=== PATIENT | female | born 1975 | race Caucasian/White ===

== ENCOUNTER 2017-07-20 06:35 | Day surgery (SDC) | payer BC ==
[~2017-07-20 06:35] MED LIST: Lactated Ringers 1,000 ML IV SCH; Lidocaine 1%/Sod Bicarbonate in NS 8.4% 1 ML Syringe IDERM PRN; Sodium Chloride 0.9% 10 ML Syringe FLUSH PRN
[2017-07-20] MEDS ORDERED: Ondansetron 4 MG/2 ML SDV ONE (07:08)
[2017-07-20] MEDS ORDERED: Rocuronium 50 MG/5 ML Vial ONE (07:08)
[2017-07-20] MEDS ORDERED: fentaNYL 250 MCG/5 ML SDV ONE ×2 (07:09→08:25)
[2017-07-20] MEDS ORDERED: Propofol 200 MG/20 ML SDV ONE (07:09)
[2017-07-20] MEDS ORDERED: Midazolam 1 MG/ML 2 ML SDV ONE (07:09)
[2017-07-20] MEDS ORDERED: Lidocaine 1% 4 ML ONE (07:09)
[2017-07-20] MEDS ORDERED: Sodium Chloride 0.9% 50 ML SDV ONE (07:11)
[2017-07-20] MEDS ORDERED: Bupivacaine 0.5% 30 ML SDV ONE (07:11)
[2017-07-20] MEDS ORDERED: Lidocaine 1% with EPINEPHrine 1:100,000 20 ML MDV ONE (07:11)
--- NOTE | 2017-07-20 07:28 | PCM.PREANE ---
Preanesthetic Assessment - Anesthesia/Transfusion/Family Hx Anesthesia History: Prior Anesthesia Without Reaction Family History of Anesthesia Reaction: No Transfusion History: No Prior Transfusion(s) - Review of Systems General: No Symptoms Pulmonary: No Symptoms Cardiovascular: No Symptoms Gastrointestinal: No Symptoms Neurological: No Symptoms Other: Reports: None - Physical Assessment NPO Status Date: 07/19/17 NPO Status Time: 00:00 Pulse: 81 O2 Sat by Pulse Oximetry: 97 Respiratory Rate: 20 Blood Pressure: 122/67 Temperature: 37.2 C Height: 1.7 m Weight: 74.389 kg ASA Class: 2 Mental Status: Alert & Oriented x3 Airway Class: Mallampati = 1 Dentition: Reports: Normal Dentition Thyro-Mental Finger Breadths: 3 Mouth Opening Finger Breadths: 3 ROM/Head Extension: Full Lungs: Clear to Auscultation, Normal Respiratory Effort Cardiovascular: Regular Rate, Regular Rhythm, No Murmurs - Lab Values: Laboratory Last Values Urine Color Yellow (Yellow) 07/20/17 06:50 Urine Appearance Clear (Clear) 07/20/17 06:50 Urine pH 6.0 (5.0-8.0) 07/20/17 06:50 Ur Specific [place] 1.020 (1.005-1.030) 07/20/17 06:50 Urine Protein Negative (Negative) 07/20/17 06:50 Urine Glucose (UA) Negative (Negative) 07/20/17 06:50 Urine Ketones Negative (Negative) 07/20/17 06:50 Urine Occult Blood Trace-lysed (Negative) H 07/20/17 06:50 Urine Nitrite Negative (Negative) 07/20/17 06:50 Urine Bilirubin Negative (Negative) 07/20/17 06:50 Urine Urobilinogen 0.2 (0.2-1.0) 07/20/17 06:50 Ur Leukocyte Esterase 2+ (Negative) H 07/20/17 06:50 - Allergies Allergies/Adverse Reactions: Allergies Allergy/AdvReac Type Severity Reaction Status Date / Time latex Allergy Mouth Sores Verified 08/30/13 15:33 CDT Penicillins Allergy Hives Verified 08/30/13 15:33 CDT - Blood Blood Available: Yes Product(s) Available: PRBC - Anesthesia Plan Pre-Op Medication Ordered: None - Acknowledgements Anesthesia Type Planned: General Anesthesia Pt an Appropriate Candidate for the Planned Anesthesia: Yes Alternatives and Risks of Anesthesia Discussed w Pt/Guardian: Yes Pt/Guardian Understands and Agrees with Anesthesia Plan: Yes PreAnesthesia Questionnaire HEENT History: Reports: None Cardiovascular History: Reports: None Respiratory History: Reports: None Gastrointestinal History: Reports: GERD, Other (See Below) Other Gastrointestinal History: HERNIA REPAIR Genitourinary History: Reports: None LEAD MINER BLASTING History: Reports: Endometrial Ablation, Other (See Below) Other OB/BYN History: LAPAROSCOPY WITH LYSIS OF ADHESIONS, MENORRHAGIA, PELVIC PAIN Neurological History: Reports: None Psychiatric History: Reports: None Endocrine/Metabolic History: Reports: None Hematologic History: Reports: None Immunologic History: Reports: None Oncologic (Cancer) History: Reports: None Dermatologic History: Reports: None - Past Surgical History Head Surgeries/Procedures: Reports: None HEENT Surgical History: Reports: None Cardiovascular Surgical History: Reports: None Respiratory Surgical History: Reports: None GI Surgical History: Reports: Hernia Repair/Other Female Surgical History: Reports: Breast Biopsy Endocrine Surgical History: Reports: None Neurological Surgical History: Reports: None Musculoskeletal Surgical History: Reports: Arthroscopic Knee, Other (See Below) Other Musculoskeletal Surgeries/Procedures:: FOOT SURGERY, KNEE SURGERY X2 Oncologic Surgical History: Reports: None Dermatological Surgical History: Reports: None - SUBSTANCE USE Smoking Status *Q: Never Smoker Recreational Drug Use History: No - HOME MEDS Home Medications: Home Meds Calcium Carbonate [Calcium] 500 mg PO DAILY 07/19/17 [History] Cholecalciferol (Vitamin D3) [Vitamin D3] 1,000 unit PO DAILY 07/19/17 [History] Inulin [Fiber Gummies] 2 gm PO DAILY 07/19/17 [History] Lysine 500 mg PO DAILY 07/19/17 [History] Multivitamin with Minerals [Hair, Skin and Nails] 1 tab PO DAILY 07/19/17 [ History] Potassium Phosphate,Monobasic [K-Phos Original] 500 mg PO DAILY 07/19/17 [ History] - CURRENT (IN HOUSE) MEDS Current Meds: Current Medications Lactated Ringer's (Ringers, Lactated) 1,000 mls @ 125 mls/hr IV ASDIRECTED JIMMY Lidocaine/Sodium Bicarbonate (Buffered Lidocaine 1% In Ns 8.4%) 0.25 ml IDERM ONETIME PRN PRN Reason: Prior to IV Start Sodium Chloride (Saline Flush) 10 ml FLUSH ASDIRECTED PRN PRN Reason: Keep Vein Open Discontinued Medications Bupivacaine HCl (Marcaine 0.5%) Confirm Administered Dose 30 ml .ROUTE .STK-MED ONE Stop: 07/20/17 07:12 Fentanyl (Sublimaze) Confirm Administered Dose 250 mcg .ROUTE .STK-MED ONE Stop: 07/20/17 07:10 Lidocaine HCl (Xylocaine-Mpf 1%) Confirm Administered Dose 4 mls @ as directed .ROUTE .STK-MED ONE Stop: 07/20/17 07:10 Lidocaine/Epinephrine (Xylocaine 1% With Epinephrine 1:100,000) Confirm Administered Dose 20 ml .ROUTE .STK-MED ONE Stop: 07/20/17 07:12 Midazolam HCl (Versed 1 Mg/Ml) Confirm Administered Dose 2 mg .ROUTE .STK-MED ONE Stop: 07/20/17 07:10 Ondansetron HCl (Zofran) Confirm Administered Dose 4 mg .ROUTE .STK-MED ONE Stop: 07/20/17 07:09 Propofol (Diprivan 20 Ml) Confirm Administered Dose 200 mg .ROUTE .STK-MED ONE Stop: 07/20/17 07:10 Rocuronium [place] (Zemuron) Confirm Administered Dose 50 mg .ROUTE .STK-MED ONE Stop: 07/20/17 07:09 Sodium Chloride (Normal Saline) Confirm Administered Dose 50 ml .ROUTE .STK-MED ONE Stop: 07/20/17 07:12
[2017-07-20] MEDS ORDERED: HYDROmorphone 0.5 MG/0.5 ML Syringe ONE ×2 (08:04→08:05)
[2017-07-20] MEDS ORDERED: Dexamethasone 4 MG/ML 5 ML MDV ONE (08:10)
[2017-07-20] MEDS ORDERED: Ketorolac 30 MG/ML SDV ONE (08:10)
[2017-07-20] MEDS ORDERED: Lactated Ringers 1,000 ML ONE ×2 (08:13→10:04)
--- NOTE | 2017-07-20 09:04 | PCM.SN ---
- Free Text/Narrative Note: General Surgery Intra-operative Consult I was asked by Dr. Zara Miranda, OBGYN, to provide assistance in the OR during their laparoscopic hysterectomy procedure. During mobilization of the sigmoid colon by the primary team, there was a small serosal tear made along the anterior aspect. I scrubbed in to assist. I inspected the serosal tear, and it was very small <1 cm, and was superficial. No need for surgical repair. I provided assistance with medialization of the sigmoid colon and mobilizing it away from the round ligament. This was performed bluntly, with monopolar cautery , and Ligasure. For details of the rest of the procedure, please see OBGYN (primary team) note. Nathan Nunes M.D., F.A.C.S. General Surgery Pager: [phone]
[2017-07-20] MEDS ORDERED: HYDROmorphone 0.5 MG/0.5 ML Syringe IVPUSH PRN (11:15)
[2017-07-20] MEDS ORDERED: fentaNYL 100 MCG/2 ML SDV IVPUSH PRN (11:15)
--- NOTE | 2017-07-20 11:17 | PCM.POSTAN ---
POST ANESTHESIA ASSESSMENT - MENTAL STATUS Mental Status: Alert, Oriented - VITAL SIGNS Pulse Rate: 79 SaO2: 97 Resp Rate: 8 Blood Pressure: 97/56 Temperature: 36.8 C - RESPIRATORY Respiratory Status: Respiratory Rate WNL, Airway Patent, O2 Saturation Stable, Supplemental Oxygen - CARDIOVASCULAR CV Status: Pulse Rate WNL, Blood Pressure Stable - GASTROINTESTINAL GI Status: No Symptoms - PAIN Pain Score: 0 - POST OP HYDRATION Hydration Status: Adequate & Stable - OBSERVATIONS Free Text/Narrative:: no anesthesia complications noted
--- NOTE | 2017-07-20 11:23 | PCM.OPNOTE ---
- General Post-Op/Procedure Note Date of Surgery/Procedure: 07/20/17 Operative Procedure(s): LAVH Findings: Bowel adhesions, enlarged uterus, normal ovaries Pre Op Diagnosis: menorrhagia, pelvic pain Post-Op Diagnosis: Same Anesthesia Technique: General ET Tube Primary Surgeon: Zara Miranda Secondary Surgeon: Nathan Nunes Office Communication Professor: Latoya Mobley Reason Office Communication Professor Was Necessary: retraction, anesthesia time Fluid Replacement, Intraop: 2,500 Output, Urine Amount: 250 EBL in mLs: 200 Complications: small bowel serosal injury, intraop consult Dr. Nunes Condition: Good Free Text/Narrative:: The risks, benefits, indications, potential complications, and alternatives were explained to the patient and informed consent obtained. The patient was taken to the Operating Room where general anesthesia was induced without complication. The patient was placed in dorsal lithotomy with Morro Stirrups and an exam under anesthesia revealed the findings detailed above. The patient was then prepped and draped in the usual sterile fashion. A sterile bivalve speculum was placed into the vagina and the anterior lip of the cervix was grasped with a single tooth tenaculum and a Digby uterine manipulator was placed to allow uterine manipulation throughout the procedure. The speculum and single tooth tenaculum were removed from the vagina. A Servin catheter was placed in sterile fashion. Attention was then turned to the patients abdomen where a Veress needle was carefully introduced into the peritoneal cavity while tenting the abdominal wall. Intraperitoneal placement was confirmed by free flow of saline into the abdomen from a syringe open to gravity and with a low intraabdominal pressure with insufflation of C02 gas on low flow. The gas was increased to high flow and a pneumoperitoneum was obtained with C02 gas to a pressure of 15 mm Hg. A 5 mm skin incision was made in a usual fashion in the umbilical fold and a 5 mm blunt trocar was inserted into the abdomen with direct visualization of the laparoscope through the clear view trocar lens. 5 mm skin incisions were made in both the left and right lower quadrants approximately 10 cm lateral and 3 cm inferior to the umbilicus. 5 mm blunt trocars were inserted into the abdomen under direct visualization with care to avoid the abdominal wall vasculature. A blunt probe and grasper were inserted through the accessory ports and a survey of the abdomen revealed the findings detailed above. The right fallopian tube was elevated with the blunt graspers at the fimbriated end. The right ureter was directly visualized and noted to be below the planned dissection area. The Ligasure was used to grasp, elevate, cauterize and transect the right adnexa from the fimbriated end toward the uterus to the level of the round ligament. The round ligament on the right was then elevated, cauterized, and transected with the Ligasure. Hemostasis was noted. Next, the vesicouterine peritoneum was elevated gently with a blunt grasper and the ligausre was used dissect the vesicouterine peritoneum to make a bladder flap. Two more small bites along the right side of the uterus were made with the Ligasure to skeletonize the uterine artery. Hemostasis was noted. The exact same procedure was carried out on the left adnexa starting with grasping the left fallopian tube by the fimbriated end and identifying the left ureter position. During this there were adhesions of the sigmoid making access to the tube and round ligament difficult. A small serosal tear was created in the bowel. General surgeon consulted intraoperatively and assisted in mobilizing the sigmoid colon. Next, the Ligasure was used to grasp, cauterize, and transect from the fimbriated end of the fallopian tube toward the uterus to the level of the round ligament. Next, the left round ligament was elevated, cauterized, and transected and a couple of additional small bites on the left side of the uterus were made to help skeletonize the left uterine artery. Hemostasis as noted. The CO2 gas was turned off and the laparoscope was removed. Attention was then turned to the vaginal portion of the procedure. A short weighted speculum was placed in the vagina, and the cervix was grasped with two double-toothed tenaculums. The cervix was injected circumferentially with 10 mL of dilute Pitressin (10 units in 30 mL of NS). The cervix was then circumferentially incised with a scalpel. A Raytec was used to bluntly dissect the cervix circumferentially until an avascular plane was obtained. The posterior cul-de-sac was entered sharply without difficulty. A 0-Vicryl pop-off suture was placed at six o'clock to include the posterior vaginal mucosa and posterior peritoneum. This stitch was tagged with a straight clamp to help with vaginal cuff closure at the end of the case. The short weighted speculum was replaced by the long weighted speculum. The uterosacral ligaments were grasped on either side, transected, suture ligated, and tagged with curved hemostats on each side. Hemostasis was assured. The bladder was dissected off the pubovesical cervical fascia anteriorly with a sponge and blunt dissection. The anteiror cul-de-sac was then entered sharply without difficulty. The cardinal ligaments were then serially clamped on both sides, transected, and suture ligated in similar fashion with 0-Vicryl sutures. The uterine arteries were then clamped, transected and suture ligated on both sides with 0-Vicryl sutures. Hemostasis was then noted. The fundus and adnexa were confirmed to be free of any further peritoneal attachments and then were pulled out through the vagina. The uterosacral ligaments were transfixed to the vaginal cuff at the apex on each side with 0-vicryl sutures in figure of eight fashion. The vaginal cuff was closed with a 0-Vicryl in a running locked fashion. Hemostasis was noted. Attention was then again turned to the abdomen. All members of the surgical team changed gloves. The laparoscope was again inserted and the abdomen was again insufflated with CO2. The pedicles were again visualized. Irrigation of the pedicles was performed. Neymar seal was placed along the vaginal cuff. Hemostasis was confirmed. The patient was taken out of Trendelenberg position. The accessory trocars were removed under direct visualization. The pneumoperitoneum was allowed to escape. The umbilical trocar was removed and lastly the camera was removed from the abdomen under direct visualization to confirm no herniation into the port site. All skin incisions were re- approximated with 4-0 Monocryl and sealed with Dermabond. Hemostasis was noted. A total of 10 cc of 0.25% Marcaine was injected into the subcutaneous tissues surrounding the skin incisions for local anesthesia. All sponge, lap, needle, and instrument counts were correct x 2. The patient tolerated the procedure well and there were no complications.
[2017-07-20] MEDS ORDERED: Ondansetron 4 MG/2 ML SDV IVPUSH PRN (15:14)
[2017-07-20] MEDS ORDERED: Acetaminophen/oxyCODONE 325-5 MG Tab PO PRN (15:14)
== END 2017-07-20 16:45 | disposition home or self-care (01) ==
LOC: JD.SDS 06:35
PROVIDERS: ATTEND Obstetrics & Gynecology
DX: D25.2 Subserosal leiomyoma of uterus (principal); N87.9 Dysplasia of cervix uteri, unspecified; N80.0 Endometriosis of uterus; N83.8 Other noninflammatory disorders of ovary, fallopian tube and broad ligament; K66.0 Peritoneal adhesions (postprocedural) (postinfection); K91.72 Accidental puncture and laceration of a digestive system organ or structure during other procedure; Z88.0 Allergy status to penicillin; Z91.040 Latex allergy status; Z79.899 Other long term (current) drug therapy
CPT/HCPCS: 36415; 58552; 81003; 81025; 85025; 86850; 86900; 86901; J1100; J1170; J1885; J2001; J2250; J2405; J3010; J7120; J2704

== ENCOUNTER 2017-07-29 10:57 | Emergency (ER) | payer BC ==
[2017-07-29] MEDS ORDERED: HYDROmorphone 0.5 MG/0.5 ML SYRINGE IVPUSH ONE (11:40)
[2017-07-29] MEDS ORDERED: Ondansetron 4 MG/2 ML SDV IVPUSH ONE (11:41)
--- NOTE | 2017-07-29 11:44 | EDM.PDOC ---
ED HPI GENERAL MEDICAL PROBLEM - General Chief Complaint: Genitourinary Problem Stated Complaint: POST SURGICAL ISSUES Time Seen by Provider: 07/29/17 11:17 Source of Information: Reports: Patient, Old Records History Limitations: Reports: No Limitations - History of Present Illness INITIAL COMMENTS - FREE TEXT/NARRATIVE: The patient reports, and the medical record confirms, that the patient underwent a laparoscopically assisted vaginal hysterectomy per Dr. Miranda on 07/20/2017. There was a small serosal tear to the large intestine noted, that did not require repair. The patient reports that she developed constipation postoperatively, therefore took Dulcolax, then magnesium citrate on 07/25/2017, with good relief of the constipation. This past 07/27/2017, the patient developed abdominal pain that has been coming and going. Is had nausea, but no emesis. She has had chills and diaphoresis, although no documented fever, and she is afebrile here in the ED. She denies recent dysuria, urinary urgency, or frequency. The patient states that she has had similar symptoms in the past, any focal as far back as 1993, however, she states that following her femoral herniorrhaphy in 2000, the pain essentially resolved, until last year. She states that Dr. Miranda is out of the office today; when she called the office, she was instructed to come to the ED. The patient does not have a PCP, other than Dr. Miranda. Treatments OUTREACH CONSULTANT: Reports: NSAIDS Lower Anterior Groin Pain Score (Numeric/FACES): 10 - Related Data Allergies Allergy/AdvReac Type Severity Reaction Status Date / Time latex Allergy Mouth Sores Verified 07/29/17 11:23 Penicillins Allergy Hives Verified 07/29/17 11:23 Home Meds: Home Meds Calcium Carbonate [Calcium] 500 mg PO DAILY 07/19/17 [History] Cholecalciferol (Vitamin D3) [Vitamin D3] 1,000 unit PO DAILY 07/19/17 [History] Multivitamin with Minerals [Hair, Skin and Nails] 1 tab PO DAILY 07/19/17 [ History] Potassium Phosphate,Monobasic [K-Phos Original] 500 mg PO DAILY 07/19/17 [ History] Ondansetron HCl [Zofran] 4 mg PO QID PRN #30 tablet 07/20/17 [Rx] Past Medical History Gastrointestinal History: Reports: PUD - Past Surgical History HEENT Surgical History: Reports: Oral Surgery ([place] teeth extraction) GI Surgical History: Reports: Hernia, Abdominal (Umbilical, as an ), Hernia Repair/Other (Femoral, 2000) Female Surgical History: Reports: Breast Biopsy Musculoskeletal Surgical History: Reports: Arthroscopic Knee, Other (See Below) Other Musculoskeletal Surgeries/Procedures:: FOOT SURGERY, KNEE SURGERY X2 Social & Family History - Tobacco Use Smoking Status *Q: Never Smoker Second Hand Smoke Exposure: No - Caffeine Use Caffeine Use: Reports: Coffee - Alcohol Use Alcohol Use History: Yes Alcohol Use Frequency: Socially - Recreational Drug Use Recreational Drug Use: No - Living Situation & Occupation Living situation: Reports: , with Spouse Occupation: Employed (residential mortgage underwriter) ED ROS GENERAL - Review of Systems Review Of Systems: ROS reveals no pertinent complaints other than HPI. ED EXAM, GI/ABD - Physical Exam Exam: See Below Exam Limited By: No Limitations General Appearance: Alert, WD/WN, No Apparent Distress Eyes: Bilateral: Normal Appearance, EOMI Ears: Normal External Exam, Hearing Grossly Normal Nose: Normal Inspection, No Blood Throat/Mouth: Normal Inspection, Normal Lips, Normal Voice, No Airway Compromise Head: Atraumatic, Normocephalic Neck: Normal Inspection, Full Range of Motion Respiratory/Chest: No Respiratory Distress, Lungs Clear, Normal Breath Sounds, No Accessory Muscle Use Cardiovascular: Normal Peripheral Pulses, Regular Rate, Rhythm, No Edema, No Gallop, No JVD, No Murmur, No Rub GI/Abdominal Exam: Soft, No Organomegaly, No Distention, No Abnormal Bruit, No Mass, Pelvis Stable, Tender (Mild, lower abdomen. Essentially nontender elsewhere. 3 laparoscopic wounds are clean, dry, and intact.), Abnormal Bowel Sounds (diminished) (Female) Exam: Deferred Rectal (Female) Exam: Deferred Back Exam: Normal Inspection, Full Range of Motion, CVA Tenderness (L) (mild), CVA Tenderness (R) (mild) Extremities: Normal Inspection, Normal Range of Motion, No Pedal Edema, Normal Capillary Refill Neurological: Alert, Oriented, Normal Cognition, No Motor/Sensory Deficits Psychiatric: Normal Affect Skin Exam: Warm, Dry, Intact, Normal Color, No Rash Course - Vital Signs Last Recorded V/S: Last Vital Signs Temp 37.6 C 07/29/17 11:11 Pulse 111 H 07/29/17 11:11 Resp 20 07/29/17 11:11 BP 121/77 07/29/17 11:11 Pulse Ox 97 07/29/17 11:11 - Orders/Labs/Meds Orders: Active Orders 24 hr Category Date Time Status UA W/MICROSCOPIC [URIN] Stat Lab 07/29/17 11:45 Ordered Sodium Chloride 0.9% [Normal Saline] 1,000 ml Med 07/29/17 11:45 Active IV ASDIRECTED Sodium Chloride 0.9% [Saline Flush] Med 07/29/17 12:46 Active 10 ml FLUSH ONETIME PRN Medication Orders Sodium Chloride (Normal Saline) 1,000 mls @ 150 mls/hr IV ASDIRECTED JIMMY Last Admin: 07/29/17 12:19 Dose: 150 mls/hr Sodium Chloride (Saline Flush) 10 ml FLUSH ONETIME PRN PRN Reason: IV FLUSH Last Admin: 07/29/17 12:58 Dose: 10 ml Labs: Laboratory Tests 07/29/17 07/29/17 07/29/17 Range/Units 11:45 12:35 12:35 WBC 16.21 H (3.98-10.04) K/mm3 RBC 4.38 (3.98-5.22) M/mm3 Hgb 13.1 (11.2-15.7) gm/L Hct 39.8 (34.1-44.9) % MCV 90.9 (79.4-94.8) fl MCH 29.9 (25.6-32.2) pg MCHC 32.9 (32.2-35.5) g/dl RDW Std Deviation 40.3 (36.4-46.3) fL Plt Count 303 (182-369) K/mm3 MPV 9.1 L (9.4-12.3) fl Neutrophils % (Manual) 72 H (40-60) % Band Neutrophils % 0 (0-10) % Lymphocytes % (Manual) 21 (20-40) % Atypical Lymphs % 0 % Monocytes % (Manual) 7 (2-10) % Eosinophils % (Manual) 0 L (0.7-5.8) % Basophils % (Manual) 0 L (0.1-1.2) Platelet Estimate Adequate RBC Morph Comment Normal Sodium 138 (136-145) mEq/L Potassium 3.5 (3.5-5.1) mEq/L Chloride 103 (98-107) mEq/L Carbon Dioxide 29 (21-32) mEq/L Anion Gap 9.5 (5-15) BUN 9 (7-18) mg/dL Creatinine 0.9 (0.55-1.02) mg/dL Est Cr Clr Drug Dosing 77.57 mL/min Estimated GFR (MDRD) > 60 (>60) mL/min BUN/Creatinine Ratio 10.0 L (14-18) Glucose 131 H (74-106) mg/dL Calcium 8.8 (8.5-10.1) mg/dL Total Bilirubin 0.9 (0.2-1.0) mg/dL AST 13 L (15-37) U/L ALT 16 (14-59) U/L Alkaline Phosphatase 55 (46-116) U/L Total Protein 7.3 (6.4-8.2) g/dl Albumin 3.1 L (3.4-5.0) g/dl Globulin 4.2 gm/dL Albumin/Globulin Ratio 0.7 L (1-2) Lipase 138 (73-393) U/L Urine Color Light yellow (Yellow) Urine Appearance Clear (Clear) Urine pH 6.5 (5.0-8.0) Ur Specific [place] 1.010 (1.005-1.030) Urine Protein Negative (Negative) Urine Glucose (UA) Negative (Negative) Urine Ketones Negative (Negative) Urine Occult Blood 1+ H (Negative) Urine Nitrite Negative (Negative) Urine Bilirubin Negative (Negative) Urine Urobilinogen 0.2 (0.2-1.0) Ur Leukocyte Esterase Negative (Negative) Urine RBC 5-10 H (0-5) /hpf Urine WBC 0-5 (0-5) /hpf Ur Epithelial Cells 0-5 (0-5) /hpf Urine Bacteria Not seen (FEW) /hpf Urine Mucus Not seen (FEW) /hpf Meds: Medications Generic Name Dose Route Start Last Admin Trade Name Freq PRN Reason Stop Dose Admin Sodium Chloride 1,000 mls @ 150 mls/hr 07/29/17 11:45 07/29/17 12:19 Normal Saline IV 150 mls/hr ASDIRECTED JIMMY Administration Sodium Chloride 10 ml 07/29/17 12:46 07/29/17 12:58 Saline Flush FLUSH 10 ml ONETIME PRN Administration IV FLUSH Discontinued Medications Generic Name Dose Route Start Last Admin Trade Name uLz PRN Reason Stop Dose Admin Diatrizoate Meglum/Diatrizoate Sod 90 ml 07/29/17 12:46 07/29/17 12:58 Gastrografin 37% PO 07/29/17 12:47 90 ml ONETIME ONE Administration Hydromorphone HCl 0.5 mg 07/29/17 11:40 07/29/17 12:24 Dilaudid IVPUSH 07/29/17 11:41 0.5 mg ONETIME ONE Administration Iopamidol 100 ml 07/29/17 12:46 07/29/17 12:58 Isovue-300 (61%) IVPUSH 07/29/17 12:47 100 ml ONETIME ONE Administration Ondansetron HCl 4 mg 07/29/17 11:41 07/29/17 12:21 Zofran IVPUSH 07/29/17 11:42 4 mg ONETIME ONE Administration - Re-Assessments/Exams Free Text/Narrative Re-Assessment/Exam: 07/29/17 14:11 CT of the abdomen and pelvis with oral and IV contrast is read by Dr. Goldman as: 1. Small amount of fluid within the pelvis which appears complicated either due to blood or pus. No drainable abscess is seen at this time. 2. Small nonspecific low-density finding within the left lobe of the liver most likely incidental as no other liver findings are seen. 3. Other incidental findings as noted above. 07/29/17 14:[address] Mobley, platform consultant for Dr. Miranda, at 14:20. She states that she spoke to the patient yesterday over the phone, and offered to see the patient yesterday, however, the patient declined. She agrees that the fluid in the pelvis is likely blood, but possibly appears to be complicated due to the use of FloSeal. At this time, she is not recommending starting antibiotics. She would like the patient to follow-up with Dr. Miranda this coming week, if she does not already have an appointment to do so. The patient can return to the ED if her condition worsens. Departure - Departure Time of Disposition: 14:25 Disposition: Home, Self-Care 01 Condition: Good Clinical Impression: Postoperative hemorrhage - Discharge Information Referrals: Zara Miranda MD [Primary Care Provider] - Forms: ED Department Discharge Additional Instructions: You were seen in the emergency room for abdominal pain, chills, sweatiness, and nausea, following a hysterectomy on 07/20/2017. Workup in the ER included blood work, urinalysis, and a CT scan of your abdomen and pelvis. Your workup found that you have some postoperative blood in your abdomen and pelvis. This is likely the cause of your symptoms, as blood in the pelvis can cause inflammation and pain. Take [id number] ibuprofen, 2-3 tablets (400-600 mg) every 8 hours, with food, as needed for pain. Take one to 2 tablets of your prescription narcotic pain reliever up to every 6 hours, as needed for pain not relieved by ibuprofen. Be aware that narcotic pain relievers will likely cause constipation, therefore you should also take a stool softener. Follow-up with Dr. Miranda at your previously scheduled appointment this 08/02/2017, however, return to the ER for reevaluation if you develop a significant fever or worsening abdominal pain. - My Orders Last 24 Hours: My Active Orders 07/29/17 11:45 UA W/MICROSCOPIC [URIN] Stat Sodium Chloride 0.9% [Normal Saline] 1,000 ml IV ASDIRECTED 07/29/17 12:46 Sodium Chloride 0.9% [Saline Flush] 10 ml FLUSH ONETIME PRN - Assessment/Plan Last 24 Hours: My Active Orders 07/29/17 11:45 UA W/MICROSCOPIC [URIN] Stat Sodium Chloride 0.9% [Normal Saline] 1,000 ml IV ASDIRECTED 07/29/17 12:46 Sodium Chloride 0.9% [Saline Flush] 10 ml FLUSH ONETIME PRN
[2017-07-29] MEDS ORDERED: Sodium Chloride 0.9% 1,000 ML IV SCH (11:45)
[2017-07-29] MEDS ORDERED: Iopamidol 612 MG/ML 100 ML Bottle IVPUSH ONE (12:46)
[2017-07-29] MEDS ORDERED: Diatrizoate Meglumine/Diatrizoate Sodium 37% 120 ML Bottle PO ONE (12:46)
[2017-07-29] MEDS ORDERED: Sodium Chloride 0.9% 10 ML Syringe FLUSH PRN (12:46)
--- NOTE | 2017-07-29 14:07 | CT ---
CT abdomen and pelvis Technique: Multiple axial sections were obtained from above the dome of the diaphragm inferiorly through the pubic symphysis. Intravenous and oral contrast was utilized. Delayed images were obtained through the bladder. Comparison: No previous study. Findings: Visualized lung bases show nothing acute. Liver shows a small low density lesion within the left lobe measuring 5 mm. This is too small to get accurate Hounsfield unit measurements and uncertain as to etiology but is most likely incidental given that no other liver lesion is present. Spleen appears within normal limits. Adrenal glands show no nodule. Pancreas is within normal limits. Gallbladder contains no calcified gallstones. Kidneys show symmetric contrast enhancement without hydronephrosis or mass. Aorta shows no aneurysmal dilatation. No retroperitoneal adenopathy or mesenteric abnormalities are seen. Complicated fluid is seen along the left psoas muscle and within the dependent portions of the pelvis. This could represent pus or small amount of blood. Both ovaries show cystic change most likely representing follicles. Delayed images show contrast within the ureters which show no dilatation. Contrast is noted within the bladder on delayed images. No cystic areas are seen to indicate drainable abscess at this time. No bowel dilatation is seen. Appendix is seen which is normal in size. Bone window settings were reviewed which appear within normal limits for the patient's age. Small fat containing umbilical hernia is seen. Surgical material is seen within the left inguinal region. Impression: 1. Small amount of fluid within the pelvis which appears complicated either due to blood or pus. No drainable abscess is seen at this time. 2. Small nonspecific low density finding within the left lobe of the liver most likely incidental as no other liver findings are seen. 3. Other incidental findings as noted above. Diagnostic code #3
== END 2017-07-29 14:55 | disposition home or self-care (01) ==
LOC: JD.ED 10:57
DX: N99.821 Postprocedural hemorrhage of a genitourinary system organ or structure following other procedure (principal); Z91.040 Latex allergy status; Z88.0 Allergy status to penicillin; Z79.899 Other long term (current) drug therapy
CPT/HCPCS: 36415; 74177; 80053; 81001; 83690; 85007; 85027; 96361; 96374; 96375; 99284; J1170; J2405; J7040; J7050; Q9963; Q9967